=== PATIENT | female | born 1955 | race Caucasian/White ===

== ENCOUNTER 2016-12-25 08:37 | Emergency (ER) | payer OTHER ==
[~2016-12-25] VITALS: Ht 162.6 cm; Wt 87.2 kg
[~2016-12-25 08:37] MED LIST: CEFTIN500 MG PO; CIPRO500 MG PO; DOXYCYCLINE HY100 MG PO; ENDOCET 5-3251 EACH PO; FLOMAX0.4 MG PO; KEFLEX500 MG PO; LEVOFLOXACIN750 MG PO; MOTRIN800 MG PO; OMEPRAZOLE20 MG PO; PERCOCET 5/31 TABLET PO; PROTONIX; RIFADIN PO; RIFADIN300 MG PO; RIFAMPIN300 MG PO; TRAZODONE HCL100 MG PO; ZOFRAN ODT4 MG PO; ZOFRAN4 MG PO
[2016-12-25] MEDS ORDERED: ULTRAM50 MG PO (10:10)
[2016-12-25] MEDS ORDERED: NAPROXEN500 MG PO (10:10)
[2016-12-25 10:33] VITALS: BP 160/78
== END 2016-12-25 10:35 | disposition home or self-care (01) ==
LOC: EME 08:37
DX: M77.01 Medial epicondylitis, right elbow (principal); M25.531 Pain in right wrist; X50.3XXA Overexertion from repetitive movements, initial encounter; I10 Essential (primary) hypertension; K21.9 Gastro-esophageal reflux disease without esophagitis; Z72.0 Tobacco use
CPT/HCPCS: 99281; 99284

== ENCOUNTER 2017-10-16 13:19 | Emergency (ER) | payer OTHER ==
[~2017-10-16] VITALS: Ht 154.9 cm; Wt 86.2 kg
[~2017-10-16 13:19] MED LIST changes: +NAPROXEN500 MG PO; +ULTRAM50 MG PO
[2017-10-16 14:21] LABS: HEMATOCRIT 44.3 % (36.0-46.0); HEMOGLOBIN 15.7 G/DL (11.9-15.5); MCH 29.8 PG (29.0-34.0); MCHC 35.4 G/DL (30.0-36.0); MCV 84.2 FL (83-99); PLATELET COUNT 240 K/uL (156-360); RBC DIS.WIDTH-CV 12.8 % (11.8-14.6); RBC DIS.WIDTH-SD 39.2 % (39-53); RED BLOOD COUNT 5.26 M/uL (3.80-5.20); WHITE BLOOD COUNT 9.6 K/uL (4.1-10.2)
[2017-10-16 14:33] LABS: CHLORIDE 107 mEq/L (99-109); POTASSIUM 3.9 mEq/L (3.7-5.4); SODIUM 141 mEq/L (136-147)
[2017-10-16 14:34] LABS: GLUCOSE 99 mg/dL (70-99)
[2017-10-16 14:38] LABS: CREATININE 1.1 mg/dL (0.6-1.3); GFR ESTIMATE (CALCULATED) 53 mL/min/
[2017-10-16 14:39] LABS: UREA NITROGEN (BUN) 19 mg/dL (9-23)
[2017-10-16 17:54] VITALS: BP 175/90
[2017-10-17] MEDS ORDERED: PANTOPRAZOLE SO20 MG PO (20:08)
[2017-10-17] MEDS ORDERED: MELOXICAM15 MG PO (20:09)
[2017-10-17] MEDS ORDERED: TURMERIC 500 M1 EACH PO (20:10)
== END 2017-10-16 16:18 | disposition left against medical advice (07) ==
LOC: EME 13:19
DX: R00.2 Palpitations (principal); I10 Essential (primary) hypertension; F17.200 Nicotine dependence, unspecified, uncomplicated; Z88.5 Allergy status to narcotic agent
CPT/HCPCS: 71046; 80048; 85027; 93005; 99281; 99283

== ENCOUNTER 2017-10-17 16:19 | Observation (INO) | payer OTHER ==
[~2017-10-17] VITALS: Ht 165.1 cm; Wt 85.7 kg
[2017-10-17 17:37] LABS: HEMATOCRIT 42.7 % (36.0-46.0); HEMOGLOBIN 15.2 G/DL (11.9-15.5); MCH 29.9 PG (29.0-34.0); MCHC 35.6 G/DL (30.0-36.0); MCV 83.9 FL (83-99); PLATELET COUNT 242 K/uL (156-360); RBC DIS.WIDTH-CV 12.6 % (11.8-14.6); RBC DIS.WIDTH-SD 38.7 % (39-53); RED BLOOD COUNT 5.09 M/uL (3.80-5.20); WHITE BLOOD COUNT 8.9 K/uL (4.1-10.2)
[2017-10-17 17:47] LABS: CHLORIDE 109 mEq/L (99-109); POTASSIUM 3.4 mEq/L (3.7-5.4); SODIUM 140 mEq/L (136-147)
[2017-10-17 17:49] LABS: GLUCOSE 126 mg/dL (70-99)
[2017-10-17 17:52] LABS: CREATININE 1.3 mg/dL (0.6-1.3); GFR ESTIMATE (CALCULATED) 44 mL/min/
[2017-10-17 17:53] LABS: UREA NITROGEN (BUN) 20 mg/dL (9-23)
[2017-10-17 18:02] LABS: TROP-I INTERPRETATION NEGATIVE; TROPONIN-I < 0.01 ng/mL (0.0-0.30)
[2017-10-17] MEDS ORDERED: PANTOPRAZOLE SO20 MG PO (20:08)
[2017-10-17] MEDS ORDERED: MELOXICAM15 MG PO (20:09)
[2017-10-17] MEDS ORDERED: TURMERIC 500 M1 EACH PO (20:10)
[2017-10-17 21:26] LABS: APPEARANCE CLEAR ((CLEAR)); BILIRUBIN NEGATIVE; BLOOD NEGATIVE; COLOR YELLOW ((YELLOW)); GLUCOSE (STRIP) NEGATIVE; KETONES NEGATIVE; LEUKOCYTES NEGATIVE; NITRITE NEGATIVE; PROTEIN (STRIP) NEGATIVE; SPECIFIC GRAVITY 1.012 (1.000-1.030); UCUL ADDED? NO; UROBILINOGEN 0.2 MG/DL (0.2-1.0)
[2017-10-17 21:34] VITALS: BP 167/81
[2017-10-17 21:35] LABS: AMPHETAMINE NEGATIVE (500 ng/mL); BARBITURATES NEGATIVE (200 ng/mL); BENZODIAZEPINES NEGATIVE (150 ng/mL); BUPRENORPHINE NEGATIVE (10 ng/mL); COCAINE NEGATIVE (150 ng/mL); METHADONE NEGATIVE (200 ng/mL); METHAMPHETAMINE NEGATIVE (500 ng/mL); OPIATES (MORPHINE) NEGATIVE (100 ng/mL); OXYCODONE NEGATIVE (100 ng/mL); PHENCYCLIDINE NEGATIVE (25 ng/mL); PROPOXYPHENE NEGATIVE (300 ng/mL); THC CANNABINOIDS NEGATIVE (50 ng/mL); TRICYCLIC ANTIDEPRESSANTS NEGATIVE (300 ng/mL)
[2017-10-17 21:59] LABS: HDL CHOLESTEROL 40 MG/DL (Desirable>=50); LDL CHOLESTEROL 130 mg/dL (Desirable<100); NON-HDL CHOLESTEROL 172 mg/dL (Desirable<160); TOTAL CHOLESTEROL 212 mg/dL (Desirable<200); TRIGLYCERIDES 211 MG/DL (Normal: <150)
[2017-10-18 04:06] VITALS: BP 149/70
[2017-10-18 07:43] VITALS: BP 151/83
[2017-10-18] MEDS ORDERED: AMLODIPINE BESYL5 MG PO (10:14)
[2017-10-18 11:36] VITALS: BP 142/60
[2017-10-19 10:43] LABS: HEMOGLOBIN A1c (GLYCOHEMOGLOB) 5.4 % (Below 5.7)
== END 2017-10-18 14:00 | disposition home or self-care (01) ==
LOC: EME 16:19 → EDOF 20:37 → ENRESERV 20:38 → 5WEST 21:26
PROVIDERS: Physician Assistant; Physician Assistant Medical
DX: R53.1 Weakness (principal); M54.5 Low back pain; I12.9 Hypertensive chronic kidney disease with stage 1 through stage 4 chronic kidney disease, or unspecified chronic kidney disease; N18.3 Chronic kidney disease, stage 3 (moderate); E87.6 Hypokalemia; G89.29 Other chronic pain; M48.061 Spinal stenosis, lumbar region without neurogenic claudication; Z85.828 Personal history of other malignant neoplasm of skin; F41.9 Anxiety disorder, unspecified; F32.9 Major depressive disorder, single episode, unspecified; E21.3 Hyperparathyroidism, unspecified; R76.11 Nonspecific reaction to tuberculin skin test without active tuberculosis; F17.200 Nicotine dependence, unspecified, uncomplicated; G43.909 Migraine, unspecified, not intractable, without status migrainosus; Z87.442 Personal history of urinary calculi; Z90.710 Acquired absence of both cervix and uterus; F12.90 Cannabis use, unspecified, uncomplicated; Z82.49 Family history of ischemic heart disease and other diseases of the circulatory system
CPT/HCPCS: 70450; 71046; 72131; 80048; 80061; 81003; 83036; 83880; 84484; 85027; 93005; 99281; 99285; G0378; G8978 GP CH; G8979 GP CH; G8980 GP CH; G8987 GO CH; G8988 GO CH; G8989 GO CH; J1650